=== PATIENT | male | born 1990 | race African-American/Black ===

== ENCOUNTER 2021-02-03 18:05 | Emergency (ER) | payer OTHER ==
[~2021-02-03] VITALS: Ht 182.9 cm; Wt 74.8 kg
[2021-02-03] MEDS ORDERED: OLANZAPINE 10 MG VIAL IM ONE ×2 (18:15→18:22)
[2021-02-03] MEDS ORDERED: LORAZEPAM 2 MG/1 ML VIAL IM ONE (18:15)
[2021-02-03] MEDS ORDERED: LORAZEPAM 2 MG/1 ML VIAL ONE (18:22)
[2021-02-03 18:46] LABS: HEMATOCRIT 42.7 % (36.7-47.1); MEAN CORPUSCULAR HEMOGLOBIN 28.8 uug (23.8-33.4); MEAN CORPUSCULAR VOLUME 86.5 fL (73.0-96.2); PLATELET COUNT (AUTO) 250 K/uL (152-348)
[2021-02-03 18:50] LABS: CARBON DIOXIDE 21 mmol/L (21-32); CHLORIDE 108 mmol/L (98-107); CREATININE 1.3 mg/dL (0.6-1.3); GLUCOSE 87 mg/dL (74-106); POTASSIUM 4.2 mmol/L (3.5-5.1); UREA NITROGEN, BLOOD 11 mg/dL (7-18)
[2021-02-03 18:53] LABS: ETHANOL < 3 MG/DL (0-0)
--- NOTE | 2021-02-03 18:53 | NUR ---
pt to ct scan.
[2021-02-03 18:57] LABS: ACETAMINOPHEN < 2.0 ug/mL (10-30); ALANINE AMINOTRANSFERASE 31 U/L (16-63); ALKALINE PHOSPHATASE 55 U/L (50-136); ASPARTATE AMINOTRANSFERASE 41 U/L (15-37); BILIRUBIN,DIRECT 0.1 mg/dL (0.0-0.2); BILIRUBIN,TOTAL 0.5 mg/dL (0.2-1.0); TOTAL PROTEIN, SERUM 7.2 g/dL (6.4-8.2)
--- NOTE | 2021-02-03 19:02 | NUR ---
[employer] ([id number] AND UNIT [id number]) AT BEDSIDE.
--- NOTE | 2021-02-03 19:15 | NUR ---
Pt returned from CT.
--- NOTE | 2021-02-03 19:24 | NUR ---
PHYSICAL RESTRAINS REMOVED. PT DOES NOT POSE DANGER TO OTHERS. CALM AND COOPERATIVE, RESTING COMRTOABLY IN BED. VSS. SKINS INTACT. PROVIDED CALM, QUIET ENVIRONMENT, ALL NEEDS ARE MET AND ATTENDED.
[2021-02-03] MEDS ORDERED: IV NORMAL SALINE 1000 ML BAG IV ONE ×2 (20:45)
--- NOTE | 2021-02-03 21:45 | NUR ---
PT RESTING IN BED COMFORTABLY, EYES CLOSES, BREATHING EVEN AND UNLABORED. VSS.
--- NOTE | 2021-02-04 00:45 | NUR ---
Patient is resting comfortably in bed with eyes closed. VSS. Breathing even and unlabored.
[2021-02-04] MEDS ORDERED: IV NORMAL SALINE 1000 ML BAG IV ONE ×3 (01:15→06:15)
--- NOTE | 2021-02-04 03:02 | NUR ---
PT'S VSS, RESTING IN BED COMFORTABLY, NO SOB OR LABORED BREATHING, BREATHING EVEN AND UNLABORED. BED IN LOWEST POSITION FOR SAFETY PRECAUTIONS.
[2021-02-04] MEDS ORDERED: LIDOCAINE 2% (UROJET) 10 ML JELLY MM ONE (05:13)
--- NOTE | 2021-02-04 05:17 | NUR ---
ASSISTED PT TO USE URINAL, ABLE TO GIVE US URINE SAMPLE. DARK YELLOW, CLEAR, NO FOUL ODOR.
[2021-02-04 05:34] LABS: *BILIRUBIN,URIN NEGATIVE (NEGATIVE); *BLOOD, URINE 2+ (NEGATIVE); *CLARITY,URINE CLEAR (CLEAR); *COLOR,URINE YELLOW (YELLOW); *KETONES,URINE 1+ (NEGATIVE); *UROBILINOGEN,URINE 0.2 E.U./dl (NORMAL); LEUKOCYTE ESTERASE ,URINE NEGATIVE (NEGATIVE); NITRITE, URINE NEGATIVE (NEGATIVE); UGLUCOSE NEGATIVE (NEGATIVE)
[2021-02-04 05:43] LABS: BACTERIA,URINE NONE SEEN /HPF (NONE SEEN); RBC,URINE 20-50 /HPF (0-3); SQUAMOUS EPITHELIAL CELL,UR FEW /HPF (NONE SEEN); WBC,URINE 0-3 /HPF (0-3)
[2021-02-04 06:01] LABS: CREATININE 0.9 mg/dL (0.6-1.3)
[2021-02-04 06:12] LABS: *AMPHETAMINE, URINE POSITIVE (NEGATIVE); *CANNABINOID, URINE POSITIVE (NEGATIVE); *COCCAINE, URINE NEGATIVE (NEGATIVE); *OPIATE, URINE NEGATIVE (NEGATIVE); *PHENCYCLIDINE SCREEN,URINE NEGATIVE (NEGATIVE)
[2021-02-04] MEDS ORDERED: CALCIUM GLUCONATE IV 2 GM in IV NORMAL SALINE 100 ML IV ONE (06:15)
[2021-02-04] MEDS ORDERED: CALCIUM GLUCONATE 1 GM/10 ML VIAL IV ONE (06:41)
--- NOTE | 2021-02-04 07:04 | NUR ---
Patient is resting comfortably in bed with eyes closed. Breathing even and labored. VSS.
--- NOTE | 2021-02-04 07:57 | NUR ---
PT IN BED, RESTING BUT AWAKE. NO SIGN OF DISTRESS. [employer] OFFICERS AT BEDSIDE.
--- NOTE | 2021-02-04 08:27 | NUR ---
break fast provided for pt. pteating with good apetite.
[2021-02-04 09:12] LABS: CREATININE 0.9 mg/dL (0.6-1.3); POTASSIUM 3.9 mmol/L (3.5-5.1)
--- NOTE | 2021-02-04 10:20 | NUR ---
PT MEDICALLY CLEARED TO BE BOOKED BY [employer].Patient discharged to home in stable condition. Written and verbal after care instructions given. Stressed follow up or return to ER for worsening s/s. PT WALKS IN STEADY GAIT. NO SIGN OF DISTRESS.
[2021-02-04 11:11] VITALS: BP 132/77
== END 2021-02-04 10:20 ==
LOC: ER 18:09
DX: F15.129 Other stimulant abuse with intoxication, unspecified (principal); M62.82 Rhabdomyolysis; E83.51 Hypocalcemia
CPT/HCPCS: 36415 ×2; 70450; 74176; 80048 ×3; 80076; 80299; 80307; 80320; 81001; 82550 ×4; 85025; 96360; 96361; 96372; 96374; 99291; J0610; J2060; A4663; C1758; G0480; J2358; J3490; J7030